=== PATIENT | male | born 1980 | race African-American/Black ===

== ENCOUNTER 2018-07-25 15:16 | Emergency (ER) | payer SELFPAY ==
[~2018-07-25] VITALS: Ht 172.7 cm; Wt 68.0 kg
[2018-07-25 15:26] VITALS: BP 114/95
== END 2018-07-25 19:55 | disposition home or self-care (01) ==
LOC: ER 15:21
DX: S20.212A Contusion of left front wall of thorax, initial encounter (principal); Z59.0 Homelessness; Y08.89XA Assault by other specified means, initial encounter; Y93.89 Activity, other specified; Y99.8 Other external cause status; Y92.89 Other specified places as the place of occurrence of the external cause
CPT/HCPCS: 71101